=== PATIENT | male | born 1935 | race Caucasian/White ===

== ENCOUNTER 2020-09-02 09:28 | Outpatient (CLI) | payer OTHER | END 2020-09-02 18:12 | disposition home or self-care (01) | LOC: OFIC 805 09:28 | PROVIDERS: ATTEND Otolaryngology | DX: K21.00 Gastro-esophageal reflux disease with esophagitis, without bleeding (principal); H68.103 Unspecified obstruction of Eustachian tube, bilateral; H61.23 Impacted cerumen, bilateral ==

== ENCOUNTER 2020-12-04 12:56 | Outpatient (CLI) | payer OTHER | END 2020-12-05 16:05 | disposition home or self-care (01) | LOC: LAB 12:56 | PROVIDERS: ATTEND Specialist | DX: L02.612 Cutaneous abscess of left foot (principal) ==